=== PATIENT | male | born 1985 | race African-American/Black ===

== ENCOUNTER 2020-12-25 13:21 | Emergency (ER) | payer MEDICAID ==
[~2020-12-25] VITALS: Ht 185.4 cm; Wt 101.0 kg
[2020-12-25] MEDS ORDERED: ACETAMINOPHEN 325MG TABLET PO STA (13:36)
[2020-12-25] MEDS ORDERED: FAMOTIDINE 20MG TABLET PO ONE (13:45)
[2020-12-25 14:56] LABS: CHLORIDE 109 mEq/L (98-107)
[2020-12-25 15:00] LABS: BASOPHILS % 0.3 % (0.0-2.0); HEMATOCRIT. 44.2 % (42.0-52.0); HEMOGLOBIN. 15.1 g/dL (14.0-18.0); LYMPHOCYTES % 19.2 % (20.0-50.0); MEAN CORPUSCULAR HEMOGLOBIN 33.2 pg (28.0-32.0); MEAN CORPUSCULAR VOLUME 97.2 fL (80.0-94.0); MEAN PLATELET VOLUME 8.8 fl (7.4-10.4); MONOCYTES % 3.6 % (2.0-8.0); NEUTROPHILS % 75.9 % (40.0-76.0); PLATELET 194 x1000/uL (130-400); RED BLOOD CELL COUNT 4.55 mill/uL (4.7-6.1); RED CELL DISTRIBUTION WIDTH 12.6 % (11.6-14.6)
[2020-12-25 16:05] VITALS: BP 135/76
== END 2020-12-25 16:23 | disposition home or self-care (01) ==
LOC: ER 13:21
DX: R07.89 Other chest pain (principal); B94.8 Sequelae of other specified infectious and parasitic diseases; I10 Essential (primary) hypertension
CPT/HCPCS: 36415; 71045; 80053; 83880; 84484; 85025; 93005; 99285

== ENCOUNTER 2021-05-28 14:07 | Emergency (ER) | payer MEDICAID, OTHER ==
[~2021-05-28] VITALS: Ht 185.4 cm; Wt 104.0 kg
[2021-05-28] MEDS ORDERED: IBUPROFEN 600MG TABLET PO STA (15:19)
[2021-05-28 15:46] VITALS: BP 130/83
[2021-05-28 16:01] LABS: BASOPHILS % 0.3 % (0.0-2.0); EOSINOPHILS % 1.1 % (0.0-5.0); HEMATOCRIT. 41.4 % (42.0-52.0); HEMOGLOBIN. 13.8 g/dL (14.0-18.0); LYMPHOCYTES % 18.5 % (20.0-50.0); MEAN CORPUSCULAR HEMOGLOBIN 32.3 pg (28.0-32.0); MEAN CORPUSCULAR VOLUME 97.4 fL (80.0-94.0); MEAN PLATELET VOLUME 8.1 fl (7.4-10.4); MONOCYTES % 5.3 % (2.0-8.0); NEUTROPHILS % 74.8 % (40.0-76.0); PLATELET 204 x1000/uL (130-400); RED BLOOD CELL COUNT 4.26 mill/uL (4.7-6.1); RED CELL DISTRIBUTION WIDTH 12.7 % (11.6-14.6)
[2021-05-28 16:04] LABS: CHLORIDE 110 mEq/L (98-107)
== END 2021-05-28 16:58 | disposition home or self-care (01) ==
LOC: ER 14:07
DX: R07.89 Other chest pain (principal); R03.0 Elevated blood-pressure reading, without diagnosis of hypertension; J98.11 Atelectasis; Z86.16 Personal history of COVID-19
CPT/HCPCS: 36415; 71045; 80053; 84484; 85025; 93005; 99285